=== PATIENT | male | born 1980 | race Two or more races ===

== ENCOUNTER 2021-11-09 08:50 | Emergency (ER) | payer OTHER ==
[~2021-11-09] VITALS: Ht 157.5 cm; Wt 77.1 kg
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
--- NOTE | 2021-11-09 09:17 | NUR ---
XRAY AT BEDSIDE
--- NOTE | 2021-11-09 09:26 | NUR ---
PT TAKEN TO CT
--- NOTE | 2021-11-09 09:45 | NUR ---
Pt Medically Cleared for booking For DC
--- NOTE | 2021-11-09 09:51 | NUR ---
Patient discharged to home in stable condition. Written and verbal after care instructions given. Patient verbalizes understanding of instruction.
[2021-11-09 09:52] VITALS: BP 132/84
== END 2021-11-09 09:52 ==
LOC: ER 08:50
DX: S20.212A Contusion of left front wall of thorax, initial encounter (principal); S00.83XA Contusion of other part of head, initial encounter; S00.03XA Contusion of scalp, initial encounter; Y08.89XA Assault by other specified means, initial encounter; Y93.89 Activity, other specified; Y92.89 Other specified places as the place of occurrence of the external cause; Y99.8 Other external cause status
CPT/HCPCS: 70450-TC; 71045-TC; 73030-TC; 73090-TC; 73110